=== PATIENT | male | born 1955 | race Caucasian/White ===

== ENCOUNTER 2020-12-14 14:03 | Emergency (ER) | payer OTHER, BC ==
[~2020-12-14] VITALS: Ht 185.4 cm; Wt 104.3 kg
[2020-12-14] MEDS ORDERED: XARELTO10 MG (14:40)
[2020-12-14] MEDS ORDERED: METFORMIN HCL1000 M2 (14:45)
== END 2020-12-14 16:32 | disposition home or self-care (01) ==
LOC: ER 14:03
DX: S00.83XA Contusion of other part of head, initial encounter (principal); W01.198A Fall on same level from slipping, tripping and stumbling with subsequent striking against other object, initial encounter; Y93.89 Activity, other specified; Y92.89 Other specified places as the place of occurrence of the external cause; Y99.8 Other external cause status

== ENCOUNTER 2020-12-16 14:05 | Emergency (ER) | payer OTHER, BC ==
[~2020-12-16] VITALS: Ht 185.4 cm; Wt 98.9 kg
[~2020-12-16 14:05] MED LIST: METFORMIN HCL1000 M2; XARELTO10 MG
== END 2020-12-16 17:20 | disposition home or self-care (01) ==
LOC: ER 14:05
DX: R10.12 Left upper quadrant pain (principal); M54.89 Other dorsalgia; G89.11 Acute pain due to trauma